=== PATIENT | male | born 1995 | race Two or more races ===

== ENCOUNTER 2017-06-06 10:33 | Emergency (ER) | payer MEDICAID ==
[~2017-06-06] VITALS: Ht 175.3 cm; Wt 87.1 kg
[2017-06-06 11:13] VITALS: BP 117/75
[2017-06-06] MEDS ORDERED: KETOROLAC TROMETH 60MG/2ML VIAL IM ONE (13:00)
== END 2017-06-06 13:38 | disposition home or self-care (01) ==
LOC: ER 10:33
DX: M54.32 Sciatica, left side (principal)
CPT/HCPCS: 72100; 96372; 99284; J1885

== ENCOUNTER 2017-06-13 22:10 | Emergency (ER) | payer MEDICAID ==
[~2017-06-13] VITALS: Ht 172.7 cm; Wt 87.1 kg
[2017-06-13 22:13] VITALS: BP 139/81
== END 2017-06-14 01:15 | disposition left against medical advice (07) ==
LOC: ER 22:10
DX: R21 Rash and other nonspecific skin eruption (principal); Z53.21 Procedure and treatment not carried out due to patient leaving prior to being seen by health care provider

== ENCOUNTER 2017-06-14 09:34 | Emergency (ER) | payer MEDICAID ==
[~2017-06-14] VITALS: Ht 175.3 cm; Wt 85.7 kg
[2017-06-14] MEDS: EPINEPHrine HCL 1 MG/1 ML AMP SC ONE (11:13)
[2017-06-14] MEDS: methylPREDNISolone SOD SUCC 125 MG/2 ML VL IM ONE (11:13)
[2017-06-14 11:19] VITALS: BP 118/82
== END 2017-06-14 11:39 | disposition home or self-care (01) ==
LOC: ER 09:34
DX: T78.40XA Allergy, unspecified, initial encounter (principal)
CPT/HCPCS: 96372; 99284; J0171; J2930